=== PATIENT | female | born 1955 | race Caucasian/White ===

== ENCOUNTER 2021-11-07 09:50 | Emergency (ER) | payer MEDICARE, BC ==
[~2021-11-07] VITALS: Ht 162.6 cm; Wt 68.0 kg
--- NOTE | 2021-11-07 10:03 | NUR ---
Dr Sinha at the bedside for MSE.
[2021-11-07] MEDS ORDERED: METOCLOPRAMIDE HCL 10 MG/2 ML VIAL IV ONE (10:15)
[2021-11-07] MEDS ORDERED: diphenhydrAMINE 50 MG/1 ML VIAL IV ONE (10:15)
[2021-11-07] MEDS ORDERED: METHOCARBAMOL 500 MG TABLET PO ONE (10:15)
[2021-11-07] MEDS ORDERED: ACETAMINOPHEN ES 500 MG TABLET ONE (10:20)
[2021-11-07] MEDS ORDERED: SIMV10TA98 PO (10:21)
[2021-11-07] MEDS ORDERED: BENA20TA9 PO (10:21)
[2021-11-07] MEDS ORDERED: FAMO20TA8 PO (10:21)
[2021-11-07] MEDS ORDERED: diphenhydrAMINE 25 MG CAP PO ONE (10:30)
[2021-11-07] MEDS ORDERED: METOCLOPRAMIDE HCL 10 MG TABLET PO ONE (10:30)
[2021-11-07] MEDS ORDERED: ACETAMINOPHEN ES 500 MG TABLET PO ONE (10:45)
[2021-11-07 11:29] VITALS: BP 138/74
== END 2021-11-07 11:30 | disposition home or self-care (01) ==
LOC: ER 09:50
DX: M79.18 Myalgia, other site (principal); R51.9 Headache, unspecified; R42 Dizziness and giddiness; M25.561 Pain in right knee; M25.571 Pain in right ankle and joints of right foot; M25.78 Osteophyte, vertebrae; I10 Essential (primary) hypertension; E78.00 Pure hypercholesterolemia, unspecified
CPT/HCPCS: 70450; 72125; 73610; 93005; A4663; A9150

== ENCOUNTER 2022-06-24 10:20 | Emergency (ER) | payer MEDICARE, BC ==
[~2022-06-24] VITALS: Ht 162.6 cm; Wt 75.7 kg
[~2022-06-24 10:20] MED LIST: BENA20TA9 PO; FAMO20TA8 PO; SIMV10TA98 PO
--- NOTE | 2022-06-24 10:34 | NUR ---
AT BEDSIDE FOR EVALUATION.
[2022-06-24] MEDS ORDERED: BENZ-13 PO (10:42)
[2022-06-24 10:47] VITALS: BP 142/80
== END 2022-06-24 10:48 | disposition home or self-care (01) ==
LOC: ER 10:20
DX: J06.9 Acute upper respiratory infection, unspecified (principal); I10 Essential (primary) hypertension; E78.5 Hyperlipidemia, unspecified; K21.9 Gastro-esophageal reflux disease without esophagitis; Z79.899 Other long term (current) drug therapy
CPT/HCPCS: A4663